=== PATIENT | female | born 1975 | race Caucasian/White ===

== ENCOUNTER 2018-07-20 16:48 | Emergency (ER) | payer BC ==
[~2018-07-20 16:48] MED LIST: Lidocaine 1% 20 ML MDV ONE; Sodium Chloride Irrig Solution 250 ML BOT ONE
[2018-07-20] MEDS ORDERED: Adacel (T-DAP) 0.5 ML SYRINGE ONE (17:17)
[2018-07-20] MEDS ORDERED: Bacitracin Zinc 1 Packet ONE (17:38)
== END 2018-07-20 17:47 | disposition home or self-care (01) ==
LOC: MADERS 16:48
DX: S61.211A Laceration without foreign body of left index finger without damage to nail, initial encounter (principal); Z79.899 Other long term (current) drug therapy; W26.0XXA Contact with knife, initial encounter
CPT/HCPCS: 12001; 90471; 90715; J2001